=== PATIENT | female | born 1945 | race Caucasian/White ===

== ENCOUNTER 2017-10-04 04:05 | Emergency (ER) | payer MEDICARE ==
[~2017-10-04] VITALS: Ht 157.5 cm; Wt 65.4 kg
[~2017-10-04 04:05] MED LIST: ASPIRIN325 MG PO; B-12500 MCG SL; FISH OIL1000 MG PO; LOPRESSOR 550 MG/TAB PO; MULTI VIT PO; VITAMIN D2000 UNI1 PO; [UNRECOGNIZED DRUG - OTHER] PO
[2017-10-04 04:36] LABS: HEMATOCRIT 43.8 % (37.0-47.0); HEMOGLOBIN 14.8 g/dl (12.0-16.0); IMMATURE GRANULOCYTES 0.3 % (0.0-1.0); MEAN CELL VOLUME 92.6 fL CALC (80.0-100.0); MEAN CORPUSCULAR HGB 31.3 pG CALC (26.0-32.0); MEAN CORPUSCULAR HGB CONC 33.8 g/L CALC (32.0-36.0); NEUT# 9.99 thou/uL (2.00-7.15); RED BLOOD COUNT 4.73 mill/uL (4.20-5.60); RED CELL DISTRI WIDTH 12.2 % (11.5-15.5)
[2017-10-04] MEDS ORDERED: ELIQUIS5 MG PO (04:38)
[2017-10-04] MEDS ORDERED: TRIAM/HCTZ1 CAP PO (04:38)
[2017-10-04 04:46] LABS: ALBUMIN 4.6 g/dL (3.2-5.0); ALKALINE PHOSPHATASE 96 u/l (38-126); AMYLASE 48 u/l (30-110); ANION GAP 21 (6-22 (CALC)); BILIRUBIN, TOTAL 0.7 mg/dL (0.0-1.4); BUN 11 mg/dL (8-23); BUN/CREATININE RATIO 12 (12-20 (CALC)); CARBON DIOXIDE 23 mmol/l (22-30); CHLORIDE 98 mmol/l (95-108); GFR 54 ML/MIN (>=60 (CALC)); GFR FOR AFR.AMER. > 60 ML/MIN (>=60 (CALC)); LIPASE 170 u/l (23-300); POTASSIUM 3.6 mmol/l (3.5-5.1); SGOT/AST 30 u/l (9-36); SGPT/ALT 39 u/l (11-66); SODIUM 139 mmol/l (137-146)
[2017-10-04 04:52] LABS: ACT PARTIAL THROMBO TIME 25.9 SECONDS (20.0-32.5); INTERNATIONAL NORMALIZED RATIO 0.9 RATIO (0.7-1.3); PROTHROMBIN TIME 10.5 SECONDS (9.0-12.5)
[2017-10-04 04:58] LABS: MYOGLOBIN 36 ng/mL (0 - 62)
[2017-10-04 06:03] VITALS: BP 114/57
== END 2017-10-04 05:57 | disposition short-term general hospital (02) ==
LOC: ED 04:05
PROVIDERS: Emergency Medicine
DX: I21.4 Non-ST elevation (NSTEMI) myocardial infarction (principal); J18.9 Pneumonia, unspecified organism; J90 Pleural effusion, not elsewhere classified; I11.9 Hypertensive heart disease without heart failure

== ENCOUNTER 2020-09-23 08:42 | Emergency (ER) | payer MEDICARE ==
[~2020-09-23 08:42] MED LIST changes: +ELIQUIS5 MG PO; +TRIAM/HCTZ1 CAP PO
[2020-09-23 09:02] LABS: HEMATOCRIT 39.5 % (37.0-47.0); HEMOGLOBIN 12.4 g/dl (12.0-16.0); IMMATURE GRANULOCYTES 0.2 % (0.0-5.0); MEAN CELL VOLUME 88.8 fL CALC (80.0-100.0); MEAN CORPUSCULAR HGB 27.9 pG CALC (26.0-32.0); MEAN CORPUSCULAR HGB CONC 31.4 g/dL CAL (32.0-36.0); NEUT# 7.14 thou/uL (2.00-7.15); RED BLOOD COUNT 4.45 mill/uL (4.20-5.60); RED CELL DISTRI WIDTH 15.4 % (11.5-15.5)
[2020-09-23] MEDS ORDERED: ATENOLOL50 MG PO (09:19)
[2020-09-23] MEDS ORDERED: LASIX 20 MG TAB20 MG PO (09:19)
[2020-09-23] MEDS ORDERED: ASPIRIN81 MG PO (09:19)
[2020-09-23 09:21] LABS: ALBUMIN 4.9 g/dL (3.2-5.0); ALKALINE PHOSPHATASE 73 u/l (38-126); ANION GAP 14 (6-22 (CALC)); BILIRUBIN, TOTAL 0.7 mg/dL (0.0-1.4); BUN 14 mg/dL (8-23); BUN/CREATININE RATIO 15 (12-20 (CALC)); CARBON DIOXIDE 26 mmol/l (22-30); CHLORIDE 101 mmol/l (95-108); CREATININE 0.9 mg/dL (0.5-1.0); GFR > 60 ML/MIN (>=60 (CALC)); GFR FOR AFR.AMER. > 60 ML/MIN (>=60 (CALC)); POTASSIUM 3.8 mmol/l (3.5-5.1); SGOT/AST 32 u/l (9-36); SODIUM 137 mmol/l (137-146)
[2020-09-23] MEDS ORDERED: VITAMIN D2000 UNI1 PO (09:21)
[2020-09-23 09:28] LABS: TOTAL PROTEIN 8.4 g/dL (6.3-8.2)
[2020-09-23 11:15] VITALS: BP 133/59
== END 2020-09-23 11:15 | disposition left against medical advice (07) ==
LOC: ED 08:42
PROVIDERS: Family Medicine
DX: R07.9 Chest pain, unspecified (principal); I48.91 Unspecified atrial fibrillation; I10 Essential (primary) hypertension; I25.10 Atherosclerotic heart disease of native coronary artery without angina pectoris; F41.9 Anxiety disorder, unspecified; Z95.1 Presence of aortocoronary bypass graft; Z95.0 Presence of cardiac pacemaker; Z91.19 Patient's noncompliance with other medical treatment and regimen

== ENCOUNTER 2020-12-06 06:37 | Emergency (ER) | payer MEDICARE ==
[~2020-12-06] VITALS: Ht 157.5 cm; Wt 59.0 kg
[~2020-12-06 06:37] MED LIST changes: +ASPIRIN81 MG PO; +ATENOLOL50 MG PO; +LASIX 20 MG TAB20 MG PO
[2020-12-06 07:43] LABS: IMMATURE GRANULOCYTES 0.1 % (0.0-5.0); MEAN CORPUSCULAR HGB 24.9 pG CALC (26.0-32.0); NEUT# 6.66 thou/uL (2.00-7.15); RED BLOOD COUNT 3.94 mill/uL (4.20-5.60); RED CELL DISTRI WIDTH 16.6 % (11.5-15.5)
[2020-12-06 07:52] LABS: ALKALINE PHOSPHATASE 69 u/l (38-126); ANION GAP 14 (6-22 (CALC)); BILIRUBIN, TOTAL 0.5 mg/dL (0.0-1.4); BUN 10 mg/dL (8-23); BUN/CREATININE RATIO 14 (12-20 (CALC)); CARBON DIOXIDE 21 mmol/l (22-30); CHLORIDE 107 mmol/l (95-108); CREATININE 0.7 mg/dL (0.5-1.0); GFR > 60 ML/MIN (>=60 (CALC)); GFR FOR AFR.AMER. > 60 ML/MIN (>=60 (CALC)); HEMATOCRIT 31.6 % (37.0-47.0); HEMOGLOBIN 9.8 g/dl (12.0-16.0); MEAN CELL VOLUME 80.2 fL CALC (80.0-100.0); POTASSIUM 4.3 mmol/l (3.5-5.1); SGOT/AST 19 u/l (9-36); SODIUM 138 mmol/l (137-146); TOTAL PROTEIN 6.8 g/dL (6.3-8.2)
[2020-12-06 07:55] LABS: ALBUMIN 3.9 g/dL (3.2-5.0)
[2020-12-06] MEDS ORDERED: ZOLPIDEM10 MG PO (08:35)
[2020-12-06] MEDS ORDERED: LORAZEPAM0.5 MG PO (08:36)
[2020-12-06] MEDS ORDERED: FUROSEMIDE20 MG PO (08:36)
[2020-12-06] MEDS ORDERED: BUSPAR5 MG PO (08:36)
[2020-12-06 08:39] VITALS: BP 150/68
[2020-12-06 08:47] LABS: PROTHROMBIN TIME 12.8 SECONDS (9.0-12.5)
[2020-12-06 08:49] LABS: INTERNATIONAL NORMALIZED RATIO 1.3 RATIO (0.7-1.3)
== END 2020-12-06 08:42 | disposition left against medical advice (07) ==
LOC: ED 06:37
PROVIDERS: Emergency Medicine; Family Medicine
DX: R07.9 Chest pain, unspecified (principal); I10 Essential (primary) hypertension; I48.91 Unspecified atrial fibrillation; F41.9 Anxiety disorder, unspecified; I25.10 Atherosclerotic heart disease of native coronary artery without angina pectoris; Z95.1 Presence of aortocoronary bypass graft; Z91.19 Patient's noncompliance with other medical treatment and regimen